=== PATIENT | female | born 1960 | race Two or more races ===

== ENCOUNTER 2018-12-30 10:12 | Day surgery (SDC) | payer OTHER ==
[2018-12-21 11:10] VITALS: BMI 20.3
[~2018-12-30 10:12] MED LIST: DEXAMETHASONE SOD PHOSPHATE 10 MG/ML 1 ML VIAL IV ONE; KETOROLAC 30 MG/ML 1 ML VIAL IVP SCH; LACTATED RINGERS 1,000 ML IV SCH; LIDOCAINE 1% 20 ML VIAL (10MG/ML) FOR IV START INTRADERMA PRN; METOCLOPRAMIDE 5 MG/ML 2 ML VIAL IVP PRN; ONDANSETRON 4 MG/2 ML VIAL IVP ONE; SCOPOLAMINE 1.5MG/72HR PATCH TRANSDERM ONE; ceFAZolin IN SWFI 2 GM/20 ML SYRINGE IVP ONE
[2018-12-30] MEDS ORDERED: fentaNYL (PF) 50 MCG/ML 2 ML AMP ONE (12:13)
[2018-12-30] MEDS ORDERED: LIDOCAINE 1% INJ 10MG/ML (20 ML MDV) ONE (12:13)
[2018-12-30] MEDS ORDERED: MIDAZOLAM 2 MG/2 ML VIAL ONE (12:13)
[2018-12-30] MEDS ORDERED: HYDROmorphone (PF) 1 MG/ML ONE (12:13)
[2018-12-30] MEDS ORDERED: PROPOFOL 10 MG/ML 20 ML VIAL IV ONE (12:13)
[2018-12-30] MEDS ORDERED: METOPROLOL TARTRATE 5 MG/5 ML VIAL IVP ONE (12:13)
[2018-12-30] MEDS ORDERED: LACTATED RINGERS 1,000 ML IV ONE ×2 (13:43)
--- NOTE | 2018-12-30 14:04 | P.OP ---
Date of Procedure: 12/30/18 Preoperative Diagnosis: 1. Closed right trimalleolar ankle fracture 2. Current every day cigarette smoker Postoperative Diagnosis: Same Procedure(s) Performed: 1. Open reduction and internal fixation of right medial and lateral malleolus fracture, nonoperative management posterior malleolus 2. Manual application of joint stress for radiography by physician, right ankle 3. Application of short leg splint by physician, right ankle Anesthesia: ALMITAA, regional Surgeon: Kory Piña [employer] Operations Manager #1: Betsy Wade Estimated Blood Loss (ml): 10 IV fluids (ml): 1,100 Pathology: none sent Condition: stable Disposition: PACU Indications for Procedure: The patient is very pleasant 58-year-old female with a medical history significant for being a current every day cigarette smoker. The patient sustained a fall several weeks ago in which she tripped in a hole in the yard. She was placed in a splint and referred to our office after being seen in emergency department. She was found to have an unstable trimalleolar ankle fracture. She had significant swelling of her soft tissue so that her splint was applied and she was instructed on elevation and nonweightbearing to help with resolution of swelling. She followed up with me last week at which time a soft tissue exam showed wrinkling of the skin. I recommended operative fixation due to the instability noted on her injury films with lateral subluxation of the talus and displacement of both the medial and lateral malleolus fracture. We discussed potential risks and Locations of surgery including but not limited to risk of anesthesia, superficial infection, deep infection, delayed wound healing, superficial wound necrosis, nonunion of the fracture site, malunion of the fracture site, malreduction of the ankle or syndesmosis, postoperative hardware failure, symptomatically hardware, DVT, PE, other medical complications, and possibly loss of life or limb. The patient voiced her understanding that she is at a higher risk of having a complication due to her current cigarette smoking. She was strongly encouraged to quit smoking. All of her questions were answered prior to surgery. Description of Procedure: The patient was identified in preoperative holding and the correct right leg was marked with my initials. I took down the splint to reassess the soft tissue. There was wrinkling of the skin and no fracture blisters that would prevent surgery. I reviewed the consent form with the patient and her son. All their questions were answered. The patient was given a popliteal and saphenous nerve block by anesthesia. She was then brought back to the operating room. She was positioned on the OR table where general anesthetic and preoperative antibiotics were administered. A tourniquet was applied to the proximal aspect of the right leg. A bump was placed on the right buttock internally rotating the leg to neutral. The left leg secured to the OR table with foam and tape. A ramp was placed on the right leg to facilitate intraoperative imaging. Prior to starting the procedure fluoroscopy was brought in to verify an unstable ankle fracture. Preoperative fluoroscopic images showed lateral translation of the talus within the ankle mortise and displacement of both the medial and lateral malleolus. The right leg was then prepped and draped in the standard sterile fashion. Prior to starting surgery timeout was performed identifying the correct patient, operative extremity, and procedure. The patient's leg was then elevated, exsanguinated with an Esmarch bandage, and the tourniquet was inflated to 250 mmHg. I began by outlining a straight lateral incision to the distal fibula. Skin incision with a scalpel and dissection was carried down carefully to the subcu thickness tissue with tenotomy scissors. A large branch of the superficial peroneal nerve was identified carefully dissected free and retracted. The fascia over the peroneal muscles proximally and periosteum over the distal fibula distally was incised longitudinally in line with the skin incision. I sharply elevated the periosteum off of the fracture site. There was some interval healing which was sharply debrided. On inspection of the fracture there was comminution with 2 intercalary fragments anteriorly. This prevented a traditional lamp and lag screw across the oblique Foote B fibula fracture. The fibula was pulled out to length distally and K wires were placed anteriorly and posteriorly in the lateral malleolus to hold the fibula out to length. The 2 free intercalary fragments were keyed into position and held in place with 0.054 K wires. A precontoured distal fibular locking plate was then applied over the fracture and lateral malleolus to act as a bridge construct. Fluoroscopy was used to verify that the fibula was out to length and the fracture reduced. A nonlocking 3.5 mm screw was placed just proximal to the fracture bring the plate down to bone. A second nonlocking 3.5 mm screw was placed in the most proximal hole of the plate making sure the plate was centered on the fibula. Attention was then turned distally. The plate was contoured to fit over the lateral malleolus. A nonlocking 2.7 mm screw was placed bring the plate down to bone. I then proceeded to place an additional 4 locking 3.5 mm screws. The 2.7 mm screw was then exchanged for a locking 3.5 mm screw. A final nonlocking 3.5 mm screw was placed proximal to the fracture. Fluoroscopy was brought in to verify position of the hardware, rastafarian of length of the fibula, and reduction of the fracture and ankle mortise. Attention was then turned to the medial malleolus. A longitudinal incision was made with a scalpel. Dissection was carried down carefully through subcutaneous tissue with tenotomy scissors. The fracture site was identified and sharply debrided. A 2.0 mm drill bit was used to create a unicortical perforation just proximal to the fracture. One lavinia of a rhmoy-nx-tayzc reduction clamp was pl aced through this hole and the second lavinia was placed at the tip of the medial malleolus. The lavinia was gently clamped nicely reducing the fracture. A 2.5 mm Job it was used to create kitchen food server holes for 3.5 m screws anteriorly and posteriorly to the lavinia of the reduction clamp. Fully threaded nonlocking 3.5 mm screws each measuring 56 mm were placed. Final fluoroscopic images were taken including a mortise and lateral view of the ankle. The fracture was reduced and the ankle mortise intact. A manual external rotation stress x-ray was performed with no widening of the ankle mortise or incisura. I interpreted this as a stable ankle construct. Both wounds were then thoroughly irrigated with sterile saline. The periosteal and fascial layer laterally was closed with a running 0 Vicryl. The deep subcu was reapproximated using 2-0 Vicryl. The skin was closed using 3-0 nylon Algower modification of the Donati stitch. Medially the incision was closed in layers with 2-0 Vicryl for the deep subcu and 3-0 nylon horizontal mattress stitches and the skin. The tourniquet was let down. A sterile dressing was applied followed by a well-padded bulky Tran splint with the ankle in neutral. The drapes were taken down, the patient was extubated, transferred to a gurney, and brought to PACU without the procedure well. Betsy Wade PA-C was required as a skilled reading assistant for patient positioning, surgical exposure, retraction, placement of hardware, closure of wounds, application of splint. Plan: The patient is going to be discharged home as an outpatient. She is remain strictly nonweightbearing on her right ankle. She was strongly encouraged to quit smoking to enhance the healing process. She was given a prescription for pain Medication and aspirin. She'll follow-up in 2 weeks for splint removal, wound check, and x-rays of the right ankle.
[2018-12-30] MEDS: HYDROmorphone 0.5 MG/0.5 ML SYRINGE IVP PRN ×2 (14:45→14:50)
[2018-12-30 14:52] VITALS: TEMP 97.4
[2018-12-30 15:15] VITALS: RESP 16
--- NOTE | 2018-12-30 15:22 | FL ---
Fluoroscopy INDICATION: Pain FINDINGS: Fluoroscopy time: 1 minute 4 seconds. Images obtained: 4. IMPRESSIONS: 1. Documentation of fluoroscopy.
[2018-12-30 15:51] VITALS: BP 138/86; PULSE 87
== END 2018-12-30 16:04 | disposition home or self-care (01) ==
LOC: OR 10:12
PROVIDERS: ATTEND Orthopaedic Surgery
DX: S82.851A Displaced trimalleolar fracture of right lower leg, initial encounter for closed fracture (principal); W18.39XA Other fall on same level, initial encounter; F17.210 Nicotine dependence, cigarettes, uncomplicated; Z82.49 Family history of ischemic heart disease and other diseases of the circulatory system; Z71.6 Tobacco abuse counseling; Z97.3 Presence of spectacles and contact lenses; Z79.891 Long term (current) use of opiate analgesic
CPT/HCPCS: 27814; 27768; 73600; C1713; J2250; J1100; J2405; J2001; J3010; J1170 ×2; J2704; J0690